=== PATIENT | male | born 1990 | race Caucasian/White ===

== ENCOUNTER 2018-03-08 22:10 | Emergency (ER) | payer BC ==
[~2018-03-08] VITALS: Ht 193 cm; Wt 125.0 kg
[~2018-03-08 22:10] MED LIST: NO HOME MEDICATIONS; TAMIFLU 75MG75 MG PO
[2018-03-08 22:18] VITALS: TEMP 97.4
[2018-03-08] MEDS ORDERED: MULTI VITAMINS1 TAB PO (22:21)
[2018-03-09] MEDS ORDERED: NORCO 325 MG-51 TAB PO (01:05)
[2018-03-09] MEDS ORDERED: FLEXERIL 1010 MG/TAB PO (01:05)
[2018-03-09 01:27] VITALS: BP 119/82; PULSE 88
== END 2018-03-09 01:35 | disposition home or self-care (01) ==
LOC: COL.ER 22:10
DX: S39.012A Strain of muscle, fascia and tendon of lower back, initial encounter (principal); Z90.89 Acquired absence of other organs; X50.0XXA Overexertion from strenuous movement or load, initial encounter
CPT/HCPCS: J1170; J1885

== ENCOUNTER → 2019-08-04 | Outpatient (CLI) | payer OTHER ==
[~2019-08-04] MED LIST changes: +FLEXERIL 1010 MG/TAB PO; +MULTI VITAMINS1 TAB PO; +NORCO 325 MG-51 TAB PO
== END ==
LOC: COL.ER 07:37
DX: Z20.828 Contact with and (suspected) exposure to other viral communicable diseases (principal)

== ENCOUNTER 2019-10-29 08:34 | Outpatient (RCR) | payer OTHER | END 2019-12-18 | disposition home or self-care (01) | LOC: WSOH | DX: S10.83XA Contusion of other specified part of neck, initial encounter (principal) ==

== ENCOUNTER 2021-08-18 18:51 | Emergency (ER) | payer BC ==
[~2021-08-18] VITALS: Ht 193 cm; Wt 122.7 kg
[2021-08-18 19:03] VITALS: TEMP 98.2
[2021-08-18 19:47] LABS: BASO % 0.3 % (0.0-2.0); EOS # 0.2 K/mm3 (0.0-0.7); EOS % 1.5 % (0.0-4.0); GRAN # 7.3 K/mm3 (1.4-6.5); GRAN % 63.2 % (42.2-75.2); HEMATOCRIT 51.7 % (42.0-52.0); LYMPH % 25.9 % (20.0-51.0); MEAN CELL VOLUME 88 fl (80.0-100.0); MEAN CORPUSCULAR HEMOGLOBIN 32 pg (27-31); MEAN CORPUSCULAR HGB CONC 36 g/dl (33.0-37.0); MEAN PLATELET VOLUME 10.2 fl (7.4-10.4); MONO % 8.6 % (1.7-9.3); PLATELET COUNT 256 K/mm3 (130-400); RED BLOOD COUNT 5.87 M/mm3 (4.20-5.60); REDCELL DISTRIBUTION WIDTH-CV 13.1 % (11.5-14.5)
[2021-08-18 19:51] LABS: HEMOGLOBIN 18.6 g/dl (13.5-18.0)
[2021-08-18 19:53] LABS: ALBUMIN 4.8 gm/dL (3.5-5.0); BILIRUBIN,TOTAL 0.8 mg/dL (0.2-1.2); C-REACTIVE PROTEIN 0.2 mg/dL (0.00-0.50); CALCIUM 10.1 mg/dL (8.4-10.2); CREATININE, serum 1.41 mg/dL (0.72-1.25); POTASSIUM 4.2 mmol/L (3.5-4.5); TOTAL PROTEIN 8.4 gm/dL (6.2-8.1)
[2021-08-18 20:54] LABS: COLLECTION METHOD CLEAN CATCH
[2021-08-18 21:16] LABS: MUCOUS Present (NOT PRESENT); PH 5 (5-8); SQUAMOUS EPITHELIAL None Seen /hpf (0-10); URINE APPEARANCE Clear (CLEAR/HAZY); URINE BACTERIA None Seen /hpf (NONE SEEN); URINE BILIRUBIN Negative (NEGATIVE); URINE BLOOD Negative (NEGATIVE); URINE COLOR Yellow (YELLOW); URINE GLUCOSE Negative (NEGATIVE); URINE KETONE Trace (NEGATIVE); URINE LEUKOCYTE ESTERASE Negative (NEGATIVE); URINE NITRATE Negative (NEGATIVE); URINE PROTEIN(semi-quant) Negative (NEGATIVE); URINE RBC 0-2 /hpf (0-2)
[2021-08-18 21:28] LABS: TRICYCLIC ANTIDEPRESS URINE NEGATIVE
[2021-08-18 21:50] VITALS: BP 131/94; PULSE 86
== END 2021-08-18 22:13 | disposition home or self-care (01) ==
LOC: COL.ER 18:51
PROVIDERS: Nurse Practitioner
DX: R51.9 Headache, unspecified (principal); X30.XXXA Exposure to excessive natural heat, initial encounter
CPT/HCPCS: J1200; J2765; J7030